=== PATIENT | male | born 1985 | race Caucasian/White ===

== ENCOUNTER 2024-03-22 08:42 | Emergency (ER) | payer SELFPAY ==
[~2024-03-22] VITALS: Ht 182.9 cm; Wt 125.0 kg
[2024-03-22 08:49] VITALS: BP 160/106; O2SAT 98
[2024-03-22] MEDS ORDERED: AZIT250T MT (09:57)
[2024-03-22 10:03] VITALS: PULSE 89; RESP 18; TEMP 36.44736; O2SAT 99
== END 2024-03-22 10:11 | disposition home or self-care (01) ==
LOC: ER 08:42
DX: J18.9 Pneumonia, unspecified organism (principal)
CPT/HCPCS: 71045; 93005; 99283